=== PATIENT | male | born 1960 | race Caucasian/White ===

== ENCOUNTER → 2019-10-26 11:42 | Outpatient (CLI) | payer OTHER, SELFPAY ==
--- NOTE | 2019-10-26 | DI.MRI.S_ITS ---
PROCEDURE: MR LUMBAR SPINE WO CON INDICATIONS: Radiculopathy, lumbosacral region TECHNIQUE: Noncontrast sagittal T1 spin echo and T2 fast echo, sagittal STIR, axial T1 and T2 fast spin echo through the lumbar spine. In cases with scoliosis, additional coronal T2 fast spin echo may be performed. COMPARISON: [facility] Outside Film, MR, MR LUMBAR SPINE WITHOUT CONTRAST, 01/09/2012, 8:55. [facility] Outside Film, RG, SPINE LUMB 2 OR 3VW, 12/11/2013, 14:15. FINDINGS: Image quality: Excellent. Alignment and Curvature: 5 lumbar type vertebral bodies are present by plain film. There is mild, grade 1 retrolisthesis of L1 on L2, L2 on L3, L3 on L4, L4-L5, and L5 on S1. Bone Marrow: Marrow is of normal overall signal. No acute vertebral body compression fractures. There is mild reactive signal within the endplates adjacent to the 102, L2-L3, L3-L4, L4-L5, and L5-S1 intervertebral discs. Spinal Cord: Conus medullaris terminates at the L1-L2 disc space level. Visualized cord demonstrates normal signal and size. Paraspinous Soft Tissues: No paravertebral masses. L1-L2: Mild disc height loss and desiccation. Mild diffuse disc bulge. Mild facet and ligamentum flavum hypertrophy. Mild canal stenosis. No foraminal stenosis. No change. L2-L3: Moderate disc height loss and desiccation. Mild diffuse disc bulge. Mild facet and ligamentum flavum hypertrophy. Mild canal stenosis. Mild bilateral foraminal stenosis. No change. L3-L4: Moderate disc height loss and desiccation. Mild diffuse disc bulge. Mild facet and ligament flavum hypertrophy. Mild epidural lipomatosis. Moderate canal stenosis. Mild bilateral foraminal stenosis. No change. L4-L5: Moderate disc height loss and desiccation. Moderate diffuse disc bulge. Mild facet and ligamentum hypertrophy. Mild epidural lipomatosis. Mild canal stenosis. Moderate right and mild left foraminal stenosis. No change. L5-S1: Moderate disc height loss and desiccation with superimposed broad-based left posterolateral protrusion. Mild diffuse disc bulge. Mild facet and ligamentum hypertrophy. Mild canal stenosis. Moderate bilateral foraminal stenosis. There is disc abutment of the left S1 nerve root within the lateral recess without evidence of neural compression or deviation. No change. IMPRESSION: 1. Multilevel degenerative disc and facet disease, as well as ligamentum flavum hypertrophy and epidural lipomatosis. 2. Multilevel canal stenoses, worst at L3-L4 where there is moderate canal stenosis. 3. Multilevel foraminal stenoses, worst at L4-L5 on the right, and L5-S1 bilaterally where there are moderate foraminal stenoses. 4. Disc abutment of the left S1 nerve root within the lateral recess at the L5-S1 disc space level. Recommend correlation with clinical symptoms to ascertain relevance of this finding. Dictated by: Slim Dinh M.D. on 10/26/2019 at 13:45 Approved by: Slim Dinh M.D. on 10/26/2019 at 13:50
== END ==
PROVIDERS: Referring Provider Physical Medicine & Rehabilitation Pain Medicine; Visit Provider Physical Medicine & Rehabilitation Pain Medicine
DX: M51.17 Intervertebral disc disorders with radiculopathy, lumbosacral region (principal); M51.16 Intervertebral disc disorders with radiculopathy, lumbar region; M47.27 Other spondylosis with radiculopathy, lumbosacral region; M47.26 Other spondylosis with radiculopathy, lumbar region; M48.07 Spinal stenosis, lumbosacral region; M48.061 Spinal stenosis, lumbar region without neurogenic claudication; E88.2 Lipomatosis, not elsewhere classified
CPT/HCPCS: 72148

== ENCOUNTER 2019-12-02 19:10 | Emergency (ER) | payer OTHER, SELFPAY ==
[2019-12-02] VITALS (13 sets, daily range): BP systolic 131–172; BP diastolic 70–105; PULSE 85–105; RESP 13–26; TEMP 37.3; O2SAT 92–96; BMI 37.9
--- NOTE | 2019-12-02 19:27 | ED_ITS ---
HPI - General Adult <PAM Sandoval - Last Filed: 12/02/19 21:19> General Chief complaint: Hypertension Stated complaint: High BP For 3 Days 218/116 Time Seen by Provider: 12/02/19 19:18 Source: patient Mode of arrival: Ambulatory History of Present Illness HPI narrative: 59yo male with a history of hypertension, ?borderline diabetes ?, and back surgery, presents emergency department for elevated blood pressure and chest pain. Patient states he was recently switched off of lisinopril which she had been taking for blood pressure approximately week ago. He reports he was switched to a medication started with a ?a ?. Patient is throughout the week that his blood pressure has been slowly increasing. He states it is normally been in the 130s over 80s previous to the medications which. However, each day he noticed the numbers have been increasing. Patient reported he was originally switched from his medication as he had a chronic cough that would not resolve. He does report his cough is ?so much better ?. Patient noticed yesterday he developed a slight dull aching left sided chest pain that was intermittent. He states the pain was better when he sat in his chair to rest and worse when he was walking up the stairs. Reports 2/10 chest pain at time. He did have some shortness of breath upon walking up the stairs which has happened in the past. Patient states the shortness of breath is not new but is often related to his chronic back pain. However, he does not usually chest pain with exertion. Patient states today he felt flushed continued to have chest pain, he took his blood pressure and noticed that it was in the 200s and decided to come in for new evaluation. He did try to contact his doctor early in the week to notify them of his increasing blood pressure. Patient [place]. Patient denies any other symptoms such as fevers, chills, shortness of breath at this time, worsening cough, abdominal pain, nausea, vomiting, diarrhea, or any other concerns. Patient denies any previous MIs, congestive heart failure, or blood clots. Patient does not take any blood thinners or a daily aspirin. Denies taking anything today for pain. Patient states he smokes marijuana for pain control. Upon further evaluation, patient states his was tested for COVID-19 a month ago due to cough and illness. He was not tested but was given a Z-Claudio and an albuterol inhaler which improved his cough. He has ran out of his albuterol inhaler at this time. Related Data Allergies Allergy/AdvReac Type Severity Reaction Status Date / Time No Known Drug Allergies Allergy Verified 12/02/19 19:21 Review of Systems <BRETT SandovalP - Last Filed: 12/02/19 21:19> Review of Systems Narrative: REVIEW OF SYSTEMS: GENERAL: Denies fever or chills. HENT: No head trauma. CARDIOVASCULAR: Complains of chest pain, see HPI. Reports high blood pressure. RESPIRATORY: Reports exertional shortness of breath and resolving cough, see HPI. GASTROINTESTINAL: No nausea, vomiting, diarrhea, or constipation. MUSCULOSKELETAL: No pain, weakness, or deformities. INTEGUMENTARY: No rash, lesions, or pruritus. NEURO: No numbness or tingling. PSYCH: No behavior or mood changes. Patient History <Lisha Simon BOX SEALING MACHINE OPERATOR - Last Filed: 12/02/19 21:19> Medical History HTN (hypertension) (Acute) alcohol intake frequency: 0-2 drinks per day Substance Use Type: marijuana Exam <BRETT SandovalP - Last Filed: 12/02/19 21:19> Initial Vital Signs Initial Vital Signs: Vital Signs Temperature 99.1 F 12/02/19 19:19 Pulse Rate 105 H 12/02/19 19:19 Respiratory Rate 18 12/02/19 19:19 Blood Pressure 172/105 H 12/02/19 19:19 Pulse Oximetry 96 12/02/19 19:19 PHYSICAL EXAMINATION: GENERAL: Well groomed, alert, and cooperative. Obese appearing. Answers questions promptly and appropriately. Vital signs noted. HENT: Normocephalic, atraumatic. Ear canals patent. Oral mucosa is pink and moist. Facial color appears slightly flushed. EYES: Conjunctiva pink, sclera white, no periorbital swelling. CHEST: Normal to inspection and without deformities. CARDIOVASCULAR: S1 and S2 sounds normal. Slight tachycardia and regular rhythm, no murmurs, clicks, or bruits. No pedal edema. RESPIRATORY: Normal respiratory rate, trachea midline, airway patent. No stridor, nasal flaring or accessory muscle use. Lungs are clear in all murcia without wheeze, rhonchi, or crackles. GASTROINTESTINAL: Bowel sounds normoactive. Abdomen is soft and non-tender. No organomegaly. MUSCULOSKELETAL: Normal gait and coordination. Equal tone and mass bilaterally. EXTREMITIES: CMS intact. Moves all extremities. SKIN: Warm, dry, soft, appropriate color for ethnicity. No lesions, rashes, or wounds. NEURO: Alert and Oriented X 3. Good coordination. No ataxia, or sensory deficits, or cognitive issues. PSYCH: Appropriate affect and mood. <Gloria Ordaz MD - Last Filed: 12/02/19 23:07> Initial Vital Signs Initial Vital Signs: Vital Signs Temperature 99.1 F 12/02/19 19:19 Pulse Rate 105 H 12/02/19 19:19 Respiratory Rate 18 12/02/19 19:19 Blood Pressure 172/105 H 12/02/19 19:19 Pulse Oximetry 96 12/02/19 19:19 Scores <PAM Sandoval - Last Filed: 12/02/19 21:19> HEART Score Heart Score history: Slightly Suspicious Heart Score EKG: Normal Heart Score Age: 45-64 years old Heart Score risk factors: 1-2 risk factors Heart Score troponin: < or = to normal limit Heart Score Total: 2 Course <PAM Sandoval - Last Filed: 12/02/19 21:19> Course Course Narrative: 1929: After initial evaluation, patient reported chest pain has increased to a 5/10. Aspirin, nitro, and metoprolol were ordered at this time. 1947: RN reported patient's oxygen saturation dropped to 86% while patient was sitting and talking to his . Patient reports slight relief after 3 nitro but pain is starting to come back. He does report a headache, Tylenol was ordered. 2030: Patient updated on plan of care. 2109: Patient reports feeling better after administrations of steroids and albuterol, reports feeling less short of breath. 2114: Patient signed out to Dr. Ordaz for further evaluation and care Orders Ordered: ED Orders 12/02/19 19:17 EKG-12 Lead Routine 12/02/19 19:20 Complete Blood Count AUTO DIFF Stat Comprehensive Metabolic Panel Stat D Dimer Stat Lipase Stat NT-proBNP (BNP-Adult 18+) Stat Troponin & CK Cardiac Panel Stat 12/02/19 19:26 XR chest 1V Stat 12/02/19 20:16 CT chest w con Stat 12/02/19 21:13 EKG-12 Lead Stat 12/02/19 21:16 Troponin I Stat Nitroglycerin (Nitrostat) 0.4 mg SL [id number] PRN PRN Reason: Chest Pain Last Admin: 12/02/19 19:45 Dose: 0.4 mg Documented by: Admin: 12/02/19 19:37 Dose: 0.4 mg Documented by: SEN Discontinued Medications Acetaminophen (Tylenol) 650 mg PO NOW ONE Stop: 12/02/19 20:10 Last Admin: 12/02/19 20:16 Dose: 650 mg Documented by: SMITHA Albuterol (Ventolin Hfa) 2 puff INH NOW ONE Stop: 12/02/19 20:17 Last Admin: 12/02/19 20:34 Dose: 2 puff Documented by: JATIN Aspirin (Aspirin Chew) 324 mg PO NOW ONE Stop: 12/02/19 19:26 Last Admin: 12/02/19 19:37 Dose: 324 mg Documented by: SEN Ketorolac Tromethamine (Toradol) 15 mg IV NOW ONE Stop: 12/02/19 22:10 Last Admin: 12/02/19 22:17 Dose: 15 mg Documented by: SEN Methylprednisolone (Solu-Medrol 125 Mg Vial) 125 mg IV NOW ONE Stop: 12/02/19 20:19 Last Admin: 12/02/19 20:58 Dose: 125 mg Documented by: SEN Metoprolol Tartrate (Lopressor) 5 mg IV NOW ONE Stop: 12/02/19 19:26 Last Admin: 12/02/19 19:37 Dose: 5 mg Documented by: SEN Consultations Consultation #1: Patient staffed with Dr. Ordaz, discussed symptoms, tests, and test results. Vital Signs Vital signs: Vital Signs - 8 hr 12/02/19 19:19 12/02/19 19:37 12/02/19 19:45 Temperature 99.1 F Pulse Rate 105 H 95 H Respiratory Rate 18 Blood Pressure 172/105 H 169/97 H 136/77 Blood Pressure [Left Arm] Pulse Oximetry 96 12/02/19 20:00 12/02/19 20:30 12/02/19 20:38 Temperature Pulse Rate 96 H 93 H 93 H Respiratory Rate 25 H 26 H 18 Blood Pressure Blood Pressure [Left Arm] 131/79 133/84 Pulse Oximetry 93 94 93 12/02/19 20:55 12/02/19 21:25 12/02/19 22:00 Temperature Pulse Rate 88 92 H 87 Respiratory Rate 20 19 17 Blood Pressure Blood Pressure [Left Arm] 153/84 H 156/87 H 134/70 Pulse Oximetry 94 93 92 12/02/19 22:15 12/02/19 22:30 12/02/19 22:43 Temperature Pulse Rate 89 90 98 H Respiratory Rate 13 22 22 Blood Pressure Blood Pressure [Left Arm] 135/80 133/81 Pulse Oximetry 92 93 94 <Gloria Ordaz MD - Last Filed: 12/02/19 23:07> Orders Ordered: ED Orders 12/02/19 19:17 EKG-12 Lead Routine 12/02/19 19:20 Complete Blood Count AUTO DIFF Stat Comprehensive Metabolic Panel Stat D Dimer Stat Lipase Stat NT-proBNP (BNP-Adult 18+) Stat Troponin & CK Cardiac Panel Stat 12/02/19 19:26 XR chest 1V Stat 12/02/19 20:16 CT chest w con Stat 12/02/19 21:13 EKG-12 Lead Stat 12/02/19 21:16 Troponin I Stat Nitroglycerin (Nitrostat) 0.4 mg SL [id number] PRN PRN Reason: Chest Pain Last Admin: 12/02/19 19:45 Dose: 0.4 mg Documented by: Admin: 12/02/19 19:37 Dose: 0.4 mg Documented by: SEN Discontinued Medications Acetaminophen (Tylenol) 650 mg PO NOW ONE Stop: 12/02/19 20:10 Last Admin: 12/02/19 20:16 Dose: 650 mg Documented by: SMITHA Albuterol (Ventolin Hfa) 2 puff INH NOW ONE Stop: 12/02/19 20:17 Last Admin: 12/02/19 20:34 Dose: 2 puff Documented by: JATIN Aspirin (Aspirin Chew) 324 mg PO NOW ONE Stop: 12/02/19 19:26 Last Admin: 12/02/19 19:37 Dose: 324 mg Documented by: SEN Ketorolac Tromethamine (Toradol) 15 mg IV NOW ONE Stop: 12/02/19 22:10 Last Admin: 12/02/19 22:17 Dose: 15 mg Documented by: SEN Methylprednisolone (Solu-Medrol 125 Mg Vial) 125 mg IV NOW ONE Stop: 12/02/19 20:19 Last Admin: 12/02/19 20:58 Dose: 125 mg Documented by: SEN Metoprolol Tartrate (Lopressor) 5 mg IV NOW ONE Stop: 12/02/19 19:26 Last Admin: 12/02/19 19:37 Dose: 5 mg Documented by: SEN Vital Signs Vital signs: Vital Signs - 8 hr 12/02/19 19:19 12/02/19 19:37 12/02/19 19:45 Temperature 99.1 F Pulse Rate 105 H 95 H Respiratory Rate 18 Blood Pressure 172/105 H 169/97 H 136/77 Blood Pressure [Left Arm] Pulse Oximetry 96 12/02/19 20:00 12/02/19 20:30 12/02/19 20:38 Temperature Pulse Rate 96 H 93 H 93 H Respiratory Rate 25 H 26 H 18 Blood Pressure Blood Pressure [Left Arm] 131/79 133/84 Pulse Oximetry 93 94 93 12/02/19 20:55 12/02/19 21:25 12/02/19 22:00 Temperature Pulse Rate 88 92 H 87 Respiratory Rate 20 19 17 Blood Pressure Blood Pressure [Left Arm] 153/84 H 156/87 H 134/70 Pulse Oximetry 94 93 92 12/02/19 22:15 12/02/19 22:30 12/02/19 22:43 Temperature Pulse Rate 89 90 98 H Respiratory Rate 13 22 22 Blood Pressure Blood Pressure [Left Arm] 135/80 133/81 Pulse Oximetry 92 93 94 Medical Decision Making <PAM Sandoval - Last Filed: 12/02/19 21:19> Medical Records Medical records reviewed: Yes I reviewed the patient's medical records. Lab Data Lab results reviewed: Yes I reviewed the patient's lab results. Result diagrams: 12/02/19 19:20 12/02/19 19:20 Labs: Lab Results 12/02/19 12/02/19 12/02/19 Range/Units 19:20 19:20 19:20 WBC 9.3 (4.5-11.0) X10^3/uL RBC 5.04 (4.5-5.9) X10^6/uL Hgb 16.9 (13.5-17.5) g/dL Hct 47.4 (41-53) % MCV 94.1 (80-100) fL MCH 33.6 (26-34) PG MCHC 35.7 (30-36) % RDW 13.6 (11.6-14.8) % Plt Count 185 (150-400) X10^3/uL Neut % (Auto) 76.2 H (50-75) % Lymph % (Auto) 15.2 L (25-40) % [place] % (Auto) 7.8 (3-14) % Eos % (Auto) 0.5 L (2-4) % Baso % (Auto) 0.3 (0-2) % Neut # (Auto) 7100 H (1300-8430) /uL Lymph # (Auto) 1400 (6335-8757) /uL [place] # (Auto) 700 (0-900) /uL Eos # (Auto) 0 (0-450) /uL Baso # (Auto) 0 (0-100) /uL D-Dimer < 200 (<230) ng/mL Sodium 137 (137-145) mmol/L Potassium 3.9 (3.4-5.1) mmol/L Chloride 100 (98-107) mmol/L Carbon Dioxide 24 (22-32) mmol/L BUN 16 (9-20) mg/dL Creatinine 1.00 (0.66-1.25) mg/dL Estimated GFR > 60.0 (>60) mL/min BUN/Creatinine Ratio 16.0 (6-22) Glucose 162 H (70-100) mg/dL Calcium 9.7 (8.4-10.2) mg/dL Total Bilirubin 0.7 (0.2-1.3) mg/dL AST 67 H (17-59) IU/L ALT 84 H (<50) IU/L Alkaline Phosphatase 58 (38-126) U/L Total Creatine Kinase 334 H (55-170) U/L CK-MB (CK-2) 3.91 H (<2.37) ng/mL CK-MB (CK-2) Rel Index 1.2 L (1.5-5.0) % Troponin I < 0.012 (0.01-0.034) ng/mL NT-Pro-B Natriuret Pep (<125) pg/mL Total Protein 7.6 (6.3-8.2) g/dL Albumin 4.7 (3.5-5.0) g/dL Globulin 2.9 (1.7-4.1) g/dL Albumin/Globulin Ratio 1.6 (1.0-2.8) Lipase 52 (23-300) U/L 12/02/19 12/02/19 Range/Units 19:20 21:16 WBC (4.5-11.0) X10^3/uL RBC (4.5-5.9) X10^6/uL Hgb (13.5-17.5) g/dL Hct (41-53) % MCV (80-100) fL MCH (26-34) PG MCHC (30-36) % RDW (11.6-14.8) % Plt Count (150-400) X10^3/uL Neut % (Auto) (50-75) % Lymph % (Auto) (25-40) % [place] % (Auto) (3-14) % Eos % (Auto) (2-4) % Baso % (Auto) (0-2) % Neut # (Auto) (6193-0002) /uL Lymph # (Auto) (4215-1144) /uL [place] # (Auto) (0-900) /uL Eos # (Auto) (0-450) /uL Baso # (Auto) (0-100) /uL D-Dimer (<230) ng/mL Sodium (137-145) mmol/L Potassium (3.4-5.1) mmol/L Chloride (98-107) mmol/L Carbon Dioxide (22-32) mmol/L BUN (9-20) mg/dL Creatinine (0.66-1.25) mg/dL Estimated GFR (>60) mL/min BUN/Creatinine Ratio (6-22) Glucose (70-100) mg/dL Calcium (8.4-10.2) mg/dL Total Bilirubin (0.2-1.3) mg/dL AST (17-59) IU/L ALT (<50) IU/L Alkaline Phosphatase (38-126) U/L Total Creatine Kinase (55-170) U/L CK-MB (CK-2) (<2.37) ng/mL CK-MB (CK-2) Rel Index (1.5-5.0) % Troponin I < 0.012 (0.01-0.034) ng/mL NT-Pro-B Natriuret Pep 19 (<125) pg/mL Total Protein (6.3-8.2) g/dL Albumin (3.5-5.0) g/dL Globulin (1.7-4.1) g/dL Albumin/Globulin Ratio (1.0-2.8) Lipase (23-300) U/L Imaging Data Chest x-ray: Radiologist's Impression: [address] [address] XRay Report Signed Patient: EJ CLARK JMR#: [id number] : 1Acct:[id number] Age/Sex: 59 / MDate of Service: 12/02/19 Loc: ED Accession Number: [id number] Procedure: XR chest 1V Ordering Provider: Lisha Simon PROCEDURE: XR CHEST 1V INDICATIONS: chest Pain TECHNIQUE: One view of the chest was acquired. COMPARISON: None. FINDINGS: Surgical changes and devices: None. Lungs and pleura: Lungs are clear. No pleural effusions or pneumothorax. Mediastinum: Mediastinal contours appear normal. Heart size is normal. Bones and chest wall: No suspicious bony lesions. Overlying soft tissues appear unremarkable. IMPRESSION: 1. No acute cardiopulmonary disease. Dictated by: Foster Viera M.D. on 12/02/2019 at 20:28 Approved by: Foster Viera M.D. on 12/02/2019 at 20:28 ECG Data Interpretation: 191: Sinus tachycardia, rate 102, NM interval 166, QTC 373. No ST elevation or ST depression. No T-wave inversion. No ectopy. EKG viewed by Dr. Ordaz per protocol. No prior EKGs for comparison. MDM Narrative Medical decision making narrative: 59-year-old male with history of hypertension and obesity, presents to the emergency department with chest pain and hypertension. Differential includes PE versus ACS versus reactive airway disease versus viral etiology such as COVID-19. There may be a possible reactive airway disease component as patient states he feels better after inhaler administration, however, no wheezes were heard on examination prior and after administration of albuterol. Less likely congestive heart failure due to lack of crackles in the lower leg edema. No history of CHF, BNP within normal limits. Less likely PE due to negative D-dimer. CT was ordered and progress for further evaluation upon sign out. Patient was swabbed for CVOID-19 given respiratory symptoms and prolonged cough as well as hypoxia. Less likely ACS due to non remarkable EKG and negative troponin. However EKG and troponin or repeated within 2 hours for further evaluation due to worsening chest pain in the emergency department. HEART score of 2. Less likely sepsis or pneumonia due to lack the a chest x-ray, no systemic symptoms of infection such as fever or sustained tachycardia. Care was signed out to Dr. Ordaz for further evaluation and work up. <Gloria Ordaz MD - Last Filed: 12/02/19 23:07> Medical Records Medical records reviewed: Yes I reviewed the patient's medical records. Lab Data Lab results reviewed: Yes I reviewed the patient's lab results. Labs: Lab Results 12/02/19 12/02/19 12/02/19 Range/Units 19:20 19:20 19:20 WBC 9.3 (4.5-11.0) X10^3/uL RBC 5.04 (4.5-5.9) X10^6/uL Hgb 16.9 (13.5-17.5) g/dL Hct 47.4 (41-53) % MCV 94.1 (80-100) fL MCH 33.6 (26-34) PG MCHC 35.7 (30-36) % RDW 13.6 (11.6-14.8) % Plt Count 185 (150-400) X10^3/uL Neut % (Auto) 76.2 H (50-75) % Lymph % (Auto) 15.2 L (25-40) % [place] % (Auto) 7.8 (3-14) % Eos % (Auto) 0.5 L (2-4) % Baso % (Auto) 0.3 (0-2) % Neut # (Auto) 7100 H (3619-3527) /uL Lymph # (Auto) 1400 (3140-5867) /uL [place] # (Auto) 700 (0-900) /uL Eos # (Auto) 0 (0-450) /uL Baso # (Auto) 0 (0-100) /uL D-Dimer < 200 (<230) ng/mL Sodium 137 (137-145) mmol/L Potassium 3.9 (3.4-5.1) mmol/L Chloride 100 (98-107) mmol/L Carbon Dioxide 24 (22-32) mmol/L BUN 16 (9-20) mg/dL Creatinine 1.00 (0.66-1.25) mg/dL Estimated GFR > 60.0 (>60) mL/min BUN/Creatinine Ratio 16.0 (6-22) Glucose 162 H (70-100) mg/dL Calcium 9.7 (8.4-10.2) mg/dL Total Bilirubin 0.7 (0.2-1.3) mg/dL AST 67 H (17-59) IU/L ALT 84 H (<50) IU/L Alkaline Phosphatase 58 (38-126) U/L Total Creatine Kinase 334 H (55-170) U/L CK-MB (CK-2) 3.91 H (<2.37) ng/mL CK-MB (CK-2) Rel Index 1.2 L (1.5-5.0) % Troponin I < 0.012 (0.01-0.034) ng/mL NT-Pro-B Natriuret Pep (<125) pg/mL Total Protein 7.6 (6.3-8.2) g/dL Albumin 4.7 (3.5-5.0) g/dL Globulin 2.9 (1.7-4.1) g/dL Albumin/Globulin Ratio 1.6 (1.0-2.8) Lipase 52 (23-300) U/L 12/02/19 12/02/19 Range/Units 19:20 21:16 WBC (4.5-11.0) X10^3/uL RBC (4.5-5.9) X10^6/uL Hgb (13.5-17.5) g/dL Hct (41-53) % MCV (80-100) fL MCH (26-34) PG MCHC (30-36) % RDW (11.6-14.8) % Plt Count (150-400) X10^3/uL Neut % (Auto) (50-75) % Lymph % (Auto) (25-40) % [place] % (Auto) (3-14) % Eos % (Auto) (2-4) % Baso % (Auto) (0-2) % Neut # (Auto) (6735-4800) /uL Lymph # (Auto) (9000-0189) /uL [place] # (Auto) (0-900) /uL Eos # (Auto) (0-450) /uL Baso # (Auto) (0-100) /uL D-Dimer (<230) ng/mL Sodium (137-145) mmol/L Potassium (3.4-5.1) mmol/L Chloride (98-107) mmol/L Carbon Dioxide (22-32) mmol/L BUN (9-20) mg/dL Creatinine (0.66-1.25) mg/dL Estimated GFR (>60) mL/min BUN/Creatinine Ratio (6-22) Glucose (70-100) mg/dL Calcium (8.4-10.2) mg/dL Total Bilirubin (0.2-1.3) mg/dL AST (17-59) IU/L ALT (<50) IU/L Alkaline Phosphatase (38-126) U/L Total Creatine Kinase (55-170) U/L CK-MB (CK-2) (<2.37) ng/mL CK-MB (CK-2) Rel Index (1.5-5.0) % Troponin I < 0.012 (0.01-0.034) ng/mL NT-Pro-B Natriuret Pep 19 (<125) pg/mL Total Protein (6.3-8.2) g/dL Albumin (3.5-5.0) g/dL Globulin (1.7-4.1) g/dL Albumin/Globulin Ratio (1.0-2.8) Lipase (23-300) U/L Imaging Data Chest x-ray: Radiologist's Impression: IMPRESSION: 1. No acute cardiopulmonary disease. Dictated by: Foster Viera M.D. on 12/02/2019 at 20:28 CT scan - chest: Radiologist's Impression: IMPRESSION: 1. No acute consolidation, pleural effusions, or definite CT evidence of pulmonary edema. 2. 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 Dictated by: Foster Viera M.D. on 12/02/2019 at 21:16 ECG Data Attestation: I personally reviewed and interpreted this ECG as follows: Interpretation: #1 19:17 Sinus rhythm at a rate of 102 Normal axis, normal intervals No acute STT wave changes #2 21:13 Sinus rhythm at a rate of 89 Normal axis, normal intervals No acute ST T wave changes MDM Narrative Medical decision making narrative: Care is assumed from Lisha OROZCO. 59-year-old gentleman without significant coronary artery today disease history presents with chest pain change from lisinopril to presumably atenolol. He notes that his cough is significantly better after discontinuing lisinopril. Blood pressure has not been quite as well controlled. He is experiencing mild exertional dyspnea and while in the emergency department saturations were appr opriate while ambulating however dropped while at rest. Initial workup does not suggest acute coronary syndrome, pneumonia, pulmonary embolism or other acute issues. Covid19 test is pending. Repeat troponin and EKG at 2:00 a.m. are equally reassuring. Will maximize blood pressure control with metoprolol for his antianginal effects and asked that he return to his primary care physician to consider cardiac stress testing as well as sleep apnea testing. He is safe for home discharge currently. Questions were answered and findings were reviewed in detail Discharge Plan Departure Patient Disposition: Home Clinical Impression: SAUNDERS (dyspnea on exertion) Hypertension Qualifiers: Hypertension type: essential hypertension Qualified Code(s): I10 - Essential (primary) hypertension Instructions: DI for Shortness of Breath Activity Restrictions/Additional Instructions: Thank you for coming in tonight We discussed a number of issues primary 1 being I am finding no evidence of acute life-threatening diagnoses this evening. Specifically, there is no acute heart attack, pulmonary infection, other pulmonary abnormality, blood clot in your lung, no evidence of asthma or COPD, severe anemia or other lab ab normalities Things that you need to discuss with your primary care physician and recommendations on discharge: 1. High blood pressure: please increased her metoprolol from 12.5 mg to 25 mg morning and night. This can help with controlling heart rate, blood pressure and can also help in alleviating heart related chest pain 2. Continue the 5 mg of amlodipine 3. Please discuss the possibility of sleep apnea with your doctor and see if she thinks the sleep study might be appropriate. If you do have significant sleep apnea, treating this effectively can help you feel more energetic, reduce need for blood pressure medications and diabetic medications, help you think more clearly, and help with weight loss 4. Regarding the exertional dyspnea: You have described some recent weight gain and that may be contributing. We did not find evidence of an immediately impending heart attack however you may still need further testing to make sure that you are not developing coronary artery disease as reason to explain your shortness of breath. This may be in the form of a nuclear medicine stress test and your primary care physician may refer you to a universal grinder operator 5. We did do a Covid19 test today. You will be contacted with results which should be available by tomorrow. My suspicion for active Covid19 disease is very low based on your essentially normal CT scan of your chest. If you develop new or worsening symptoms, worsening chest pain dyspnea at rest, fevers or chills please return to the emergency department and I am happy to re- evaluate I have given you copies of the blood tests and imaging studies from her emergency room visit today so that you may share this with your [facility] providers.
[2019-12-02 19:34] LABS: Add Manual Diff / Slide Review NO; Basophils Absolute Auto 0 /uL (0-100); Basophils Percent Auto 0.3 % (0-2); Eosinophils Absolute Auto 0 /uL (0-450); Eosinophils Percent Auto 0.5 % (2-4); Hematocrit 47.4 % (41-53); Hemoglobin 16.9 g/dL (13.5-17.5); Lymphocytes Absolute Auto 1400 /uL (1100-4500); Lymphocytes Percent Auto 15.2 % (25-40); Mean Corpuscular HGB Conc 35.7 % (30-36); Mean Corpuscular Hemoglobin 33.6 PG (26-34); Mean Corpuscular Volume 94.1 fL (80-100); Monocytes Absolute Auto 700 /uL (0-900); Monocytes Percent Auto 7.8 % (3-14); Neutrophils Absolute Auto 7100 /uL (1500-7000); Neutrophils Percent Auto 76.2 % (50-75); Platelet Count 185 X10^3/uL (150-400); Red Blood Cell Count 5.04 X10^6/uL (4.5-5.9); Red Cell Distribution Width 13.6 % (11.6-14.8); White Blood Cell Count 9.3 X10^3/uL (4.5-11.0)
[2019-12-02] MEDS: ASPIRIN 81 MG CHEW TAB 324 MG PO (19:37)
[2019-12-02] MEDS: NITROGLYCERIN 0.4 MG SL TAB SL ×2 (19:37→19:45)
[2019-12-02] MEDS: METOPROLOL TARTRATE 5 MG/5 ML INJ IV (19:37)
[2019-12-02 19:46] LABS: Alanine Aminotransferase 84 IU/L (<50); Albumin 4.7 g/dL (3.5-5.0); Albumin Globulin Ratio 1.6 (1.0-2.8); Alkaline Phosphatase 58 U/L (38-126); Aspartate Aminotransferase 67 IU/L (17-59); Bilirubin Total 0.7 mg/dL (0.2-1.3); Blood Urea Nitrogen 16 mg/dL (9-20); Calcium 9.7 mg/dL (8.4-10.2); Carbon Dioxide 24 mmol/L (22-32); Chloride 100 mmol/L (98-107); Creatine Kinase 334 U/L (55-170); Estimated Glomerular Filt Rate > 60.0 mL/min (>60); Globulin 2.9 g/dL (1.7-4.1); Glucose 162 mg/dL (70-100); HEMOLYSIS 32 (0-50); Lipase 52 U/L (23-300); Potassium 3.9 mmol/L (3.4-5.1); Sodium 137 mmol/L (137-145); Total Protein 7.6 g/dL (6.3-8.2)
[2019-12-02 19:57] LABS: Troponin I < 0.012 ng/mL (0.01-0.034)
[2019-12-02 20:00] LABS: D Dimer < 200 ng/mL (<230)
[2019-12-02 20:01] LABS: CKMB % Relative Index 1.2 % (1.5-5.0); Creatine Kinase MB 3.91 ng/mL (<2.37)
--- NOTE | 2019-12-02 20:10 | PC.NURSE ---
Pt's oxygen dropping to 85% on Room air. Encouraged pt to deep breath and o2 would increase up to 92% then drop again after he stops deep breathing. Placed him on 2L of O2 via n/c. Pt would continue to intermittent drop to 89% and turned his o2 to 3L. Provider aware.
[2019-12-02 20:13] LABS: NT-proBNP (BNP-Adult 18+) 19 pg/mL (<125)
[2019-12-02] MEDS: ACETAMINOPHEN 325 MG TABLET 650 MG PO (20:16)
--- NOTE | 2019-12-02 20:16 | DI.CT.S_ITS ---
PROCEDURE: CT CHEST W CON INDICATIONS: Unexplained dyspnea and hypoxia TECHNIQUE: After the administration of intravenous contrast, 5 mm thick sections acquired from the pulmonary apices to the posterior costophrenic angles. 1 mm axial lung, 5 mm thick coronal and sagittal reformats and 7 mm axial MIP were acquired. For radiation dose reduction, the following was used: automated exposure control, adjustment of mA and/or kV according to patient size. COMPARISON: [facility], CR, XR CHEST 1V, 12/02/2019, 19:29. FINDINGS: Image quality: There is mild motion artifact. Lungs and pleura: No acute consolidation. Mild atelectasis or scarring is demonstrated in the inferior left lingula. No pleural effusions or pneumothorax. Central and peripheral airways are patent and normal in caliber. Mediastinum: Heart size is normal. No pericardial effusion. No mediastinal or hilar adenopathy by size criteria. Thoracic aorta and central pulmonary arteries are normal in size. Esophagus is normal in caliber. No hiatal hernia. Bones and chest wall: No suspicious bony lesions. No vertebral body compression fractures. No axillary or supraclavicular adenopathy by size criteria. There is a fat density mass within the right pectoralis minor muscle most likely representing a lipoma. Abdomen: Visualized upper abdomen demonstrates diffuse hyperattenuation of the liver consistent with fatty infiltration. IMPRESSION: 1. No acute consolidation, pleural effusions, or definite CT evidence of pulmonary edema. 2. 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 Dictated by: Foster Viera M.D. on 12/02/2019 at 21:16 Approved by: Foster Viera M.D. on 12/02/2019 at 21:19
[2019-12-02] MEDS: ALBUTEROL HFA 60 PUFF/8 GM INH INH (20:34)
[2019-12-02] MEDS: methylPREDNISolone 125 MG/2 ML VIAL IV (20:58)
[2019-12-02 21:56] LABS: Troponin I < 0.012 ng/mL (0.01-0.034)
[2019-12-02] MEDS: KETOROLAC 60 MG/2 ML VIAL 15 MG IV (22:17)
--- NOTE | 2019-12-02 22:26 | PC.NURSE ---
turned off O2 at this time.
[2019-12-02] MEDS: METOPROLOL IR 25 MG TABLET PO (23:14)
[2019-12-04 10:11] LABS: COVID19 Sendout Not Detected (Not Detect)
== END 2019-12-02 23:48 | disposition home or self-care (01) ==
PROVIDERS: Emergency Provider Nurse Practitioner
DX: I10 Essential (primary) hypertension (principal); R06.09 Other forms of dyspnea; R07.9 Chest pain, unspecified; R00.0 Tachycardia, unspecified
CPT/HCPCS: 36415; 71045; 71260; 80053; 82550; 82553; 83690; 83880; 84484; 85025; 85379; 87635; 93005; 93010; 94640; 96374; 96375; 99284; 99285; J1885; J2930

== ENCOUNTER 2020-02-10 20:47 | Emergency (ER) | payer OTHER, SELFPAY ==
[2020-02-10] VITALS (7 sets, daily range): BP systolic 156–169; BP diastolic 84–97; PULSE 95–101; RESP 7–27; TEMP 37; O2SAT 91–93; BMI 37.9
--- NOTE | 2020-02-10 20:56 | ED.AMS ---
HPI - Altered Mental Status General Chief Complaint: Neuro Symptoms/Deficit Stated Complaint: high blood pressure, multiple issues Time Seen by Provider: 02/10/20 20:50 Source: patient and family Mode of arrival: Ambulatory Limitations: no limitations History of Present Illness HPI narrative: 59M non smoker with extensive alcohol history presents with his and a family friend with the chief complaint of a fall a few days ago with anterior abdominal pain and hematoma. When talking with family he may be a bit confused over the day but there is no focal neurologic finding such as numbness, weakness, or tingling. Over the weekend the patient was working on a deck with some heavy equipment and he tripped and fell and landed on his anterior abdomen. Since then he has had some pain along his right anterior ribs and developed a hematoma in his anterior abdomen. His family is concerned that his abdomen has become distended and bloated. He denies the use of any street drugs. He denies any dietary change. He does state that he drinks a significant amount of alcohol daily. Related Data Allergies Allergy/AdvReac Type Severity Reaction Status Date / Time No Known Drug Allergies Allergy Verified 12/02/19 19:21 Review of Systems Constitutional Constitutional: Denies chills, Reports fatigue, Denies fever(s), Denies frequent falls, Denies lethargy and Denies weakness Eyes Eyes: Denies change in vision, Denies eye discharge, Denies irritation and Denies loss of vision ENT Ears, Nose, Mouth, and Throat: Denies change in voice, Denies dizziness, Denies neck pain, Denies sore throat and Denies throat swelling Cardiovascular Cardiovascular: Denies chest pain, Denies irregular heart rhythm, Denies lightheadedness, Denies palpitations, Denies dyspnea, Denies dyspnea on exertion and Denies orthopnea Respiratory Respiratory: Denies cough, Denies dyspnea, Denies dyspnea on exertion and Denies wheezing Gastrointestinal Gastrointestinal: Denies abdominal pain, Denies change in bowel habits, Denies diarrhea, Denies nausea and Denies vomiting Musculoskeletal Musculoskeletal: Denies neck pain and Denies numbness Integumentary/Breasts Skin/Breast: Denies pruritus, Denies erythema, Denies rash and Denies wounds Neurologic Neurologic: Denies behavioral changes, Denies confusion, Denies dizziness, Denies frequent falls, Denies loss of vision, Denies numbness and Denies weakness Psychiatric Psychiatric: Denies anxiety, Denies behavioral changes, Denies confusion, Denies depression, Denies homicidal ideation and Denies suicidal ideation Endocrine Endocrine: Reports fatigue, Denies flushing and Denies palpitations Hematologic/Lymphatic Hematologic/Lymphatic: Denies easy bruising Allergic/Immunologic Allergic/Immunologic: Denies urticaria, Denies throat swelling and Denies wheezing Patient History Medical History (Updated 02/11/20 @ 01:07 by Gabriel Hawkins DO) HTN (hypertension) (Acute) alcohol intake frequency: 0-2 drinks per day Substance Use Type: marijuana Exam Initial Vital Signs Initial Vital Signs: Vital Signs Pulse Rate 101 H 02/10/20 20:56 Respiratory Rate 7 L 02/10/20 20:56 Pulse Oximetry 92 02/10/20 20:56 Course Orders Ordered: ED Orders 02/10/20 20:56 CT head/brain wo con Stat EKG-12 Lead Stat 02/10/20 21:11 Complete Blood Count AUTO DIFF Stat Comprehensive Metabolic Panel Stat D Dimer Stat Ethanol (ETOH) Stat Magnesium Stat NT-proBNP (BNP-Adult 18+) Stat Partial Thromboplastin Time Stat Prothrombin Time INR Stat Troponin & CK Cardiac Panel Stat 02/10/20 22:20 Ammonia (NH3) Stat 02/10/20 22:43 CT chest abd pel w con Stat 02/11/20 00:05 Urine Drug Screen, Rapid Stat Discontinued Medications Thiamine HCl 400 mg/ Sodium (Chloride) 54 mls @ 216 mls/hr IV NOW ONE Stop: 02/10/20 20:57 Last Infusion: 02/10/20 22:10 Dose: 0 mls/hr Documented by: Admin: 02/10/20 21:12 Dose: 216 mls/hr Documented by: SEN Vital Signs Vital signs: Vital Signs - 8 hr 02/10/20 20:56 02/10/20 21:00 02/10/20 21:30 Temperature 98.6 F Pulse Rate 101 H 100 H 99 H Respiratory Rate 7 L 27 H 21 Blood Pressure 163/97 H 156/84 H Pulse Oximetry 92 92 91 02/10/20 22:00 02/10/20 22:30 02/10/20 23:05 Temperature Pulse Rate 100 H 95 H 99 H Respiratory Rate 24 23 Blood Pressure 169/90 H 156/87 H Pulse Oximetry 92 93 93 02/10/20 23:30 Temperature Pulse Rate 97 H Respiratory Rate Blood Pressure Pulse Oximetry 91 MDM - Altered Mental Status Lab Data Result diagrams: 02/10/20 21:11 02/10/20 21:11 Labs: Lab Results 02/10/20 02/10/20 02/10/20 Range/Units 21:11 21:11 21:11 WBC 8.1 (4.5-11.0) X10^3/uL RBC 5.08 (4.5-5.9) X10^6/uL Hgb 16.9 (13.5-17.5) g/dL Hct 48.5 (41-53) % MCV 95.5 (80-100) fL MCH 33.2 (26-34) PG MCHC 34.8 (30-36) % RDW 13.7 (11.6-14.8) % Plt Count 154 (150-400) X10^3/uL Neut % (Auto) 72.1 (50-75) % Lymph % (Auto) 17.6 L (25-40) % [place] % (Auto) 7.7 (3-14) % Eos % (Auto) 2.1 (2-4) % Baso % (Auto) 0.5 (0-2) % Neut # (Auto) 5800 (8746-0068) /uL Lymph # (Auto) 1400 (4915-8831) /uL [place] # (Auto) 600 (0-900) /uL Eos # (Auto) 200 (0-450) /uL Baso # (Auto) 0 (0-100) /uL PT 11.4 (10.1-12.7) SECONDS INR 1.0 (0.9-1.3) APTT 30 (26.4-36.2) SECONDS D-Dimer (<230) ng/mL Sodium 138 (137-145) mmol/L Potassium 4.1 (3.4-5.1) mmol/L Chloride 102 (98-107) mmol/L Carbon Dioxide 25 (22-32) mmol/L BUN 17 (9-20) mg/dL Creatinine 1.01 (0.66-1.25) mg/dL Estimated GFR > 60.0 (>60) mL/min BUN/Creatinine Ratio 16.8 (6-22) Glucose 210 H (70-100) mg/dL Calcium 9.0 (8.4-10.2) mg/dL Magnesium 1.8 (1.6-2.3) mg/dL Total Bilirubin 0.5 (0.2-1.3) mg/dL AST 77 H (17-59) IU/L ALT 106 H (<50) IU/L Alkaline Phosphatase 55 (38-126) U/L Ammonia (9-30) umol/L Total Creatine Kinase 433 H (55-170) U/L CK-MB (CK-2) 3.77 H (<2.37) ng/mL CK-MB (CK-2) Rel Index 0.9 L (1.5-5.0) % Troponin I < 0.012 (0.01-0.034) ng/mL NT-Pro-B Natriuret Pep 37 (<125) pg/mL Total Protein 7.1 (6.3-8.2) g/dL Albumin 4.4 (3.5-5.0) g/dL Globulin 2.7 (1.7-4.1) g/dL Albumin/Globulin Ratio 1.6 (1.0-2.8) U Opiates 300ng/mL cut (Negative) Ur Oxycodone Screen (Negative) Urine Methadone Screen (Negative) Ur Barbiturates Screen (Negative) U Tricyclic Antidepress (Negative) Ur Phencyclidine Scrn (Negative) Ur Amphetamines Screen (Negative) U Methamphetamines Scrn (Negative) Ur MDMA Scrn (Ecstasy) (Negative) U Benzodiazepines Scrn (Negative) Urine Cocaine Screen (Negative) U Marijuana (THC) Screen (Negative) Ethyl Alcohol ( - 10) mg/dL 02/10/20 02/10/20 02/10/20 Range/Units 21:11 21:11 22:20 WBC (4.5-11.0) X10^3/uL RBC (4.5-5.9) X10^6/uL Hgb (13.5-17.5) g/dL Hct (41-53) % MCV (80-100) fL MCH (26-34) PG MCHC (30-36) % RDW (11.6-14.8) % Plt Count (150-400) X10^3/uL Neut % (Auto) (50-75) % Lymph % (Auto) (25-40) % [place] % (Auto) (3-14) % Eos % (Auto) (2-4) % Baso % (Auto) (0-2) % Neut # (Auto) (4026-7526) /uL Lymph # (Auto) (9400-4366) /uL [place] # (Auto) (0-900) /uL Eos # (Auto) (0-450) /uL Baso # (Auto) (0-100) /uL PT (10.1-12.7) SECONDS INR (0.9-1.3) APTT (26.4-36.2) SECONDS D-Dimer < 200 (<230) ng/mL Sodium (137-145) mmol/L Potassium (3.4-5.1) mmol/L Chloride (98-107) mmol/L Carbon Dioxide (22-32) mmol/L BUN (9-20) mg/dL Creatinine (0.66-1.25) mg/dL Estimated GFR (>60) mL/min BUN/Creatinine Ratio (6-22) Glucose (70-100) mg/dL Calcium (8.4-10.2) mg/dL Magnesium (1.6-2.3) mg/dL Total Bilirubin (0.2-1.3) mg/dL AST (17-59) IU/L ALT (<50) IU/L Alkaline Phosphatase (38-126) U/L Ammonia < 9 L (9-30) umol/L Total Creatine Kinase (55-170) U/L CK-MB (CK-2) (<2.37) ng/mL CK-MB (CK-2) Rel Index (1.5-5.0) % Troponin I (0.01-0.034) ng/mL NT-Pro-B Natriuret Pep (<125) pg/mL Total Protein (6.3-8.2) g/dL Albumin (3.5-5.0) g/dL Globulin (1.7-4.1) g/dL Albumin/Globulin Ratio (1.0-2.8) U Opiates 300ng/mL cut (Negative) Ur Oxycodone Screen (Negative) Urine Methadone Screen (Negative) Ur Barbiturates Screen (Negative) U Tricyclic Antidepress (Negative) Ur Phencyclidine Scrn (Negative) Ur Amphetamines Screen (Negative) U Methamphetamines Scrn (Negative) Ur MDMA Scrn (Ecstasy) (Negative) U Benzodiazepines Scrn (Negative) Urine Cocaine Screen (Negative) U Marijuana (THC) Screen (Negative) Ethyl Alcohol 108 H ( - 10) mg/dL 02/11/20 Range/Units 00:05 WBC (4.5-11.0) X10^3/uL RBC (4.5-5.9) X10^6/uL Hgb (13.5-17.5) g/dL Hct (41-53) % MCV (80-100) fL MCH (26-34) PG MCHC (30-36) % RDW (11.6-14.8) % Plt Count (150-400) X10^3/uL Neut % (Auto) (50-75) % Lymph % (Auto) (25-40) % [place] % (Auto) (3-14) % Eos % (Auto) (2-4) % Baso % (Auto) (0-2) % Neut # (Auto) (5823-4268) /uL Lymph # (Auto) (1406-0310) /uL [place] # (Auto) (0-900) /uL Eos # (Auto) (0-450) /uL Baso # (Auto) (0-100) /uL PT (10.1-12.7) SECONDS INR (0.9-1.3) APTT (26.4-36.2) SECONDS D-Dimer (<230) ng/mL Sodium (137-145) mmol/L Potassium (3.4-5.1) mmol/L Chloride (98-107) mmol/L Carbon Dioxide (22-32) mmol/L BUN (9-20) mg/dL Creatinine (0.66-1.25) mg/dL Estimated GFR (>60) mL/min BUN/Creatinine Ratio (6-22) Glucose (70-100) mg/dL Calcium (8.4-10.2) mg/dL Magnesium (1.6-2.3) mg/dL Total Bilirubin (0.2-1.3) mg/dL AST (17-59) IU/L ALT (<50) IU/L Alkaline Phosphatase (38-126) U/L Ammonia (9-30) umol/L Total Creatine Kinase (55-170) U/L CK-MB (CK-2) (<2.37) ng/mL CK-MB (CK-2) Rel Index (1.5-5.0) % Troponin I (0.01-0.034) ng/mL NT-Pro-B Natriuret Pep (<125) pg/mL Total Protein (6.3-8.2) g/dL Albumin (3.5-5.0) g/dL Globulin (1.7-4.1) g/dL Albumin/Globulin Ratio (1.0-2.8) U Opiates 300ng/mL cut Negative (Negative) Ur Oxycodone Screen Negative (Negative) Urine Methadone Screen Negative (Negative) Ur Barbiturates Screen Negative (Negative) U Tricyclic Antidepress Positive H (Negative) Ur Phencyclidine Scrn Negative (Negative) Ur Amphetamines Screen Negative (Negative) U Methamphetamines Scrn Negative (Negative) Ur MDMA Scrn (Ecstasy) Negative (Negative) U Benzodiazepines Scrn Negative (Negative) Urine Cocaine Screen Negative (Negative) U Marijuana (THC) Screen Positive H (Negative) Ethyl Alcohol ( - 10) mg/dL Urine Dip Bedside Urine Glucose Negative Bedside Urine Bilirubin - Negative Bedside Urine Ketone - Negative Urine Specific [place] 1.010 Bedside Urine Occult Blood - Negative Bedside Urine pH 5.0 Bedside Urine Protein - Negative Bedside Urine Urobilinogen - Negative Bedside Urine Nitrite - Negative Bedside Urine Leukocytes - Negative Esterase Imaging Data CT scan - head: Radiologist's Impression: DO Lencho Dillon Patient Imaging - Surya Mcclain 59 M 1960 ACTIVITY DATE EXAM STATUS AUTHOR 02/10/20 20:56 [place] [address] CT Scan Report Signed Patient: Surya Mcclain JMR#: [id number] : [id number]:[id number] Age/Sex: 59 / MDate of Service: 02/10/20 Loc: ED Accession Number: [id number] Procedure: CT head/brain wo con Ordering Provider: Gabriel Hawkins D.O. PROCEDURE: CT HEAD/BRAIN WO CON INDICATIONS: altered, confused, slurring TECHNIQUE: Noncontrast 4.5 mm thick angled axial sections acquired from the foramen magnum to the vertex, with coronal and sagittal reformats. For radiation dose reduction, the following was used: automated exposure control, adjustment of mA and/or kV according to patient size. COMPARISON: None. FINDINGS: Image quality: Excellent. CSF spaces: Basal cisterns are patent. No extra-axial fluid collections. Ventricles are normal in size and shape. Brain: No midline shift. No intracranial masses or hemorrhage. Virgen-white matter interface is normal. Skull and face: Calvarium and visualized facial bones are intact, without suspicious lesions. Sinuses: Visualized sinuses and mastoids are clear. IMPRESSION: 1. No acute intracranial process. Dictated by: Margie Bar M.D. on 02/10/2020 at 21:38 Approved by: Margie Bar M.D. on 02/10/2020 at 21:38 MDM Narrative Medical decision making narrative: Multiple etiologies for patient's symptoms considered including: [Alcohol intoxication versus for an Achilles encephalopathy versus electrolyte abnormality versus traumatic injury versus other] Patient's symptoms improved over duration of stay with above-stated therapies. Findings and discharge diagnosis discussed with patient/family followed by verbalization of understanding Return precautions discussed with patient/family whom verbalize understanding. Discharge Plan Departure Patient Disposition: Home Clinical Impression: Abdominal hematoma Hypertension Qualifiers: Hypertension type: essential hypertension Qualified Code(s): I10 - Essential (primary) hypertension Discharge Date/Time: 02/11/20 01:24 Instructions: Essential Hypertension Activity Restrictions/Additional Instructions: *You have been diagnosed with [high blood pressure, abdominal wall contusion] *What to do: *Take medications as directed *Follow up with your primary care provider in 2-3 days, call for an appointment. Let them know you were seen in the Emergency Department and that we ask that you be seen in follow up *Return to ER if you should have any new, worsening or concerning symptoms
[2020-02-10] MEDS: THIAMINE 400 MG in SODIUM CHLORIDE 0.9% 50 ML 216 ML IV (21:12)
[2020-02-10 21:23] LABS: Add Manual Diff / Slide Review NO; Basophils Absolute Auto 0 /uL (0-100); Basophils Percent Auto 0.5 % (0-2); Eosinophils Absolute Auto 200 /uL (0-450); Eosinophils Percent Auto 2.1 % (2-4); Hematocrit 48.5 % (41-53); Hemoglobin 16.9 g/dL (13.5-17.5); Lymphocytes Absolute Auto 1400 /uL (1100-4500); Lymphocytes Percent Auto 17.6 % (25-40); Mean Corpuscular HGB Conc 34.8 % (30-36); Mean Corpuscular Hemoglobin 33.2 PG (26-34); Mean Corpuscular Volume 95.5 fL (80-100); Monocytes Absolute Auto 600 /uL (0-900); Monocytes Percent Auto 7.7 % (3-14); Neutrophils Absolute Auto 5800 /uL (1500-7000); Neutrophils Percent Auto 72.1 % (50-75); Platelet Count 154 X10^3/uL (150-400); Red Blood Cell Count 5.08 X10^6/uL (4.5-5.9); Red Cell Distribution Width 13.7 % (11.6-14.8); White Blood Cell Count 8.1 X10^3/uL (4.5-11.0)
[2020-02-10 21:29] LABS: Prothrombin Time 11.4 SECONDS (10.1-12.7)
[2020-02-10 21:32] LABS: PTT Partial Thromboplastin Tim 30 SECONDS (26.4-36.2)
[2020-02-10 21:34] LABS: Alanine Aminotransferase 106 IU/L (<50); Albumin 4.4 g/dL (3.5-5.0); Albumin Globulin Ratio 1.6 (1.0-2.8); Alkaline Phosphatase 55 U/L (38-126); Aspartate Aminotransferase 77 IU/L (17-59); BUN Creatinine Ratio 16.8 (6-22); Bilirubin Total 0.5 mg/dL (0.2-1.3); Blood Urea Nitrogen 17 mg/dL (9-20); Carbon Dioxide 25 mmol/L (22-32); Chloride 102 mmol/L (98-107); Creatine Kinase 433 U/L (55-170); Estimated Glomerular Filt Rate > 60.0 mL/min (>60); Globulin 2.7 g/dL (1.7-4.1); Glucose 210 mg/dL (70-100); HEMOLYSIS 18 (0-50); Magnesium 1.8 mg/dL (1.6-2.3); Potassium 4.1 mmol/L (3.4-5.1); Sodium 138 mmol/L (137-145); Total Protein 7.1 g/dL (6.3-8.2)
[2020-02-10 21:46] LABS: NT-proBNP (BNP-Adult 18+) 37 pg/mL (<125); Troponin I < 0.012 ng/mL (0.01-0.034)
[2020-02-10 21:49] LABS: CKMB % Relative Index 0.9 % (1.5-5.0); Creatine Kinase MB 3.77 ng/mL (<2.37)
[2020-02-10 21:59] LABS: Ethanol (ETOH) 108 mg/dL
[2020-02-10 22:41] LABS: D Dimer < 200 ng/mL (<230)
--- NOTE | 2020-02-10 22:43 | DI.CT.S_ITS ---
PROCEDURE: CT CHEST ABD PEL W CON INDICATIONS: hypoxia, anterior chest/abd pain bruising, trauma TECHNIQUE: After the administration of intravenous contrast, 5 mm thick sections acquired from the lung apices to the symphysis. 2.5 mm thick coronal and sagittal reformats were acquired. Additional 7 mm thick coronal maximum intensity projection (MIP) reformats acquired through the lungs. Optional 10-minute delayed imaging may be performed from the kidneys to the bladder. For radiation dose reduction, the following was used: automated exposure control, adjustment of mA and/or kV according to patient size. COMPARISON: [facility], CT, CT CHEST W CON, 12/02/2019, 20:22. FINDINGS: Image quality: Excellent. CHEST: Lungs: There is a 4 mm nodule in lingula (series 3, image 204). No pulmonary contusions or lacerations. No acute airspace opacities. No pneumothorax or hemothorax. Central and peripheral airways appear patent and normal in caliber. Mediastinum: No mediastinal hematomas. Heart size is normal. No pericardial effusion. Thoracic aorta and pulmonary arteries demonstrate normal size and enhancement. No mediastinal or hilar adenopathy. Esophagus is normal in caliber. No hiatal hernia. Chest wall: No rib fractures. No subcutaneous emphysema. No axillary or supraclavicular adenopathy. Thyroid gland is normal. There is an oval-shaped fatty mass in the right subpectoral/axillary area measuring 5.1 x 6.6 x 8.8 cm, compatible with a lipoma. It appears unchanged since 12/02/2019. ABDOMEN: Solid organs: Severe hepatic steatosis. Liver is normal in size and enhancement, without lacerations. Gallbladder is normal. Biliary system is non-dilated. Pancreas enhances normally, without transection. Spleen is normal in size and enhancement, without lacerations. No adrenal hematomas. Both kidneys enhance normally, without hydronephrosis or lacerations. Peritoneum and bowel: There are scattered colonic diverticula. No CT findings to suggest acute diverticulitis. Normal appendix. No free fluid or air. Unenhanced bowel loops demonstrate normal wall thickness and caliber. Nodes and vessels: No retroperitoneal or mesenteric adenopathy. There is mesenteric stranding. Numerous small subcentimeter mesenteric lymph nodes are present. Aorta and inferior vena cava are normal in size and enhancement. Miscellaneous: No ventral hernias. PELVIS: Genitourinary: Bladder wall thickness is normal. Miscellaneous: No inguinal hernias or adenopathy. Bones: Pelvic ring and hip joints appear intact. No vertebral compression fractures. Degenerative changes are noted in thoracic and lumbar spine. IMPRESSION: 1. No acute traumatic injuries in thorax, abdomen or pelvis. 2. A 4 mm nodule in the lingula. Please see in close follow-up recommendation. 3. A large lipoma in the right subpectoral/axillary area, unchanged in size. 4. Diverticulosis without acute diverticulitis. 5. Severe hepatic steatosis. 6. Mesenteric stranding and numerous small mesenteric lymph nodes consistent with mesenteric panniculitis and adenitis. Fleischner Society criteria for SOLID lung nodule followup. Nodule size (mm)Low-risk patientHigh-risk patient?4No follow-up neededFollow-up at 12 mo; if no change, no further follow-up>[id number] CT at 12 mo; if no change, no further follow-up needed.Initial follow-up CT at 6-12 mo, then 18-24 mo if no change. >6-8Initial follow-up CT at 6-12 mo, then 18-24 mo if no change. Initial follow-up CT at 3-6 mo, then 9-12 mo and 24 mo if no change. >8Follow-up CT at 3, 9, 24 mo. Or PET and/or biopsy.Same as for low-risk pts. Dictated by: Meenu Kimble M.D. on 02/11/2020 at 10:30 Approved by: Meenu Kimble M.D. on 02/11/2020 at 10:40
[2020-02-10 22:44] LABS: Ammonia (NH3) < 9 umol/L (9-30)
--- NOTE | 2020-02-11 00:12 | PC.NURSE ---
Pt ambulated to bathroom, steady gait. denies any dizziness.
[2020-02-11 00:18] LABS: Ur Creatinine 20 (Normal); Ur Specific Gravity 1.015 (Normal)
[2020-02-11 00:19] LABS: UR Morphine/Opiate cutoff 300 Negative (Negative); Urine Amphetamines Negative (Negative); Urine Barbiturates Negative (Negative); Urine Benzodiazepines Negative (Negative); Urine Cocaine Negative (Negative); Urine MDMA Negative (Negative); Urine Methadone Negative (Negative); Urine Methamphetamines Negative (Negative); Urine Oxycodone Negative (Negative); Urine Phencyclidine Negative (Negative); Urine Tetrahydrocannabinol Positive (Negative); Urine Tricyclic Antidepressant Positive (Negative); Urine pH 5 (Normal)
== END 2020-02-11 01:24 | disposition home or self-care (01) ==
PROVIDERS: Emergency Provider Emergency Medicine
DX: S30.1XXA Contusion of abdominal wall, initial encounter (principal); I10 Essential (primary) hypertension; R41.82 Altered mental status, unspecified; R47.81 Slurred speech; R07.81 Pleurodynia
CPT/HCPCS: 36415; 70450; 71260; 74177; 80053; 80305; 80320; 81003; 82140; 82550; 82553; 83735; 83880; 84484; 85025; 85379; 85610; 85730; 93005; 96360; 99284; Q9967

== ENCOUNTER 2020-05-08 18:49 | Emergency (ER) | payer MEDICARE, OTHER, SELFPAY ==
[2020-05-08] VITALS (36 sets, daily range): BP systolic 164–214; BP diastolic 83–142; PULSE 97–115; RESP 19–26; TEMP 36.9; O2SAT 91–98; BMI 38.3
--- NOTE | 2020-05-08 19:07 | DI.RAD.S_ITS ---
PROCEDURE: XR CHEST 1V INDICATIONS: chest pain TECHNIQUE: One view of the chest was acquired. COMPARISON: [facility], CR, XR CHEST 1V, 12/02/2019, 19:29. FINDINGS: Surgical changes and devices: None. Lungs and pleura: Lungs are clear. No pleural effusions or pneumothorax. Mediastinum: Mediastinal contours appear normal. Heart size is normal. Bones and chest wall: No suspicious bony lesions. Overlying soft tissues appear unremarkable. IMPRESSION: No acute cardiopulmonary abnormality. Dictated by: Michel Ambriz M.D. on 05/08/2020 at 19:34 Approved by: Michel Ambriz M.D. on 05/08/2020 at 19:35
--- NOTE | 2020-05-08 19:07 | DI.CT.S_ITS ---
PROCEDURE: CT HEAD/BRAIN WO CON INDICATIONS: salmon TECHNIQUE: Noncontrast 4.5 mm thick angled axial sections acquired from the foramen magnum to the vertex, with coronal and sagittal reformats. For radiation dose reduction, the following was used: automated exposure control, adjustment of mA and/or kV according to patient size. COMPARISON: [facility], CT, CT HEAD/BRAIN WO CON, 02/10/2020, 21:20. FINDINGS: Image quality: Excellent. CSF spaces: Basal cisterns are patent. No extra-axial fluid collections. Ventricles are normal in size and shape. Brain: No midline shift. No intracranial masses or hemorrhage. Virgen-white matter interface is normal. Skull and face: Calvarium and visualized facial bones are intact, without suspicious lesions. Sinuses: Visualized sinuses and mastoids are clear. IMPRESSION: No acute intracranial abnormality. Dictated by: Michel Ambriz M.D. on 05/08/2020 at 19:33 Approved by: Michel Ambriz M.D. on 05/08/2020 at 19:34
--- NOTE | 2020-05-08 19:11 | ED.GENADULT ---
HPI - General Adult General Chief complaint: Hypertension Stated complaint: HIGH BLOOD PRESSURE Time Seen by Provider: 05/08/20 18:55 Source: patient and family Mode of arrival: Ambulatory History of Present Illness HPI narrative: Patient here for complaints of chest pain and elevated blood pressure. Ongoing since May 2019. His average systolic is anywhere between 180-200/90-110.. Patient being evaluated by his primary care at the [place]. Has been changing his medications for blood pressure. Currently metoprolol 50 mg twice a day. As well as losartan 50 mg twice a day. Patient states lisinopril had worked for him in the past and these stated that it was removed because he had a dry cough. However he is still remains having a dry cough despite being off of lisinopril. He was on amlodipine but it causes weight gain. Two weeks ago had brief moment of altered mental status. Today had brief left-sided chest pain. No syncope. No numbness tingling weakness that is new. Has carpal tunnel syndrome which is not new. Has had admissions to the hospital 3 times in the last year for hypertensive urgency. Denies any headache at this time. Today he had 1st appointment with pain management in [place], his systolic blood pressure was 250. [facility] [place] [facility] Related Data Allergies Allergy/AdvReac Type Severity Reaction Status Date / Time No Known Drug Allergies Allergy Verified 05/08/20 19:07 Review of Systems Review of Systems Narrative: GENERAL: Denies chills, fatigue, malaise, fever, sweats. HEENT: Denies sinus pain, ear pain, sore throat, difficulty swallowing RESPIRATORY: Denies dyspnea, cough CARDIOVASCULAR: Complains chest pain, palpitations, edema, GASTROINTESTINAL: Denies nausea, vomiting, abdominal pain, diarrhea, constipation, melena. : Denies dysuria, frequency, hematuria MUSCULOSKELETAL: denies muscle or bony pain SKIN: Denies rash, skin lesions NEUROLOGIC: Denies weakness, headache, numbness, change in speech, confusion PSYCHIATRIC: No SI or HI or hallucinations ROS Unobtainable: All systems reviewed & are unremarkable except as noted in HPI and below Patient History Medical History HTN (hypertension) (Acute) Social History Smoking Status: Never smoker Smoking Status: Never smoker alcohol intake frequency: 0-2 drinks per day Substance Use Type: marijuana Exam Narrative Exam Narrative: GENERAL: patient appears stated age. Well-nourished, well-developed patient, in no distress, not toxic not dyspneic HEAD: Normocephalic. EYES: Pupils equal round and reactive. No scleral icterus. No injection no discharge ENT: Mucous membranes moist. No drooling no tongue elevation no trismus no malocclusion NECK: Trachea midline. Non tender CARDIOVASCULAR: Regular rate and rhythm without murmurs, gallops, or rubs. RESPIRATORY: Clear to auscultation. Breath sounds equal bilaterally. No wheezes, rales, or rhonchi. GASTROINTESTINAL: Abdomen soft, non-tender, nondistended. EXTREMITIES: No gross deformities. BACK: Nontender without deformity or crepitance. No flank tenderness. NEURO: AOx4. SKIN: Warm and dry PSYCH: Not anxious, is cooperative Initial Vital Signs Initial Vital Signs: Vital Signs Temperature 98.4 F 05/08/20 19:00 Pulse Rate 115 H 05/08/20 19:00 Respiratory Rate 20 05/08/20 19:00 Blood Pressure 198/116 H 05/08/20 19:00 Pulse Oximetry 98 05/08/20 19:00 Course Course Course Narrative: Time 7:35 p.m.. Without treatment blood pressure currently 170/97. Pulse 104. Patient has not had his evening blood pressure medications yet. Will order that for him now Decision to Admit Date: 05/08/20 Decision to Admit time: 22:18 Orders Ordered: ED Orders 05/08/20 19:00 Complete Blood Count AUTO DIFF Stat Comprehensive Metabolic Panel Stat Lipase Stat Troponin & CK Cardiac Panel Stat 05/08/20 19:07 CT head/brain wo con Stat XR chest 1V Stat EKG-12 Lead Stat 05/08/20 20:55 COVID19 Stat Discontinued Medications Aspirin (Aspirin Chew) 324 mg PO NOW ONE Stop: 05/08/20 22:21 Last Admin: 05/08/20 22:31 Dose: 324 mg Documented by: RMARTIN Nicardipine HCl 25 mg/ Sodium (Chloride) 250 mls @ 50 mls/hr IV TITRATE KOSTAS; Protocol Last Admin: 05/08/20 19:43 Dose: Not Given Documented by: RMARTIN Nicardipine HCl 25 mg/ Sodium (Chloride) 250 mls @ 50 mls/hr IV TITRATE KOSTAS; Protocol Last Titration: 05/08/20 23:25 Dose: 0 mg/hr, 0 mls/hr Documented by: Titration: 05/08/20 23:02 Dose: 3 mg/hr, 30 mls/hr Documented by: Titration: 05/08/20 22:46 Dose: 1.5 mg/hr, 15 mls/hr Documented by: Titration: 05/08/20 22:42 Dose: 0 mg/hr, 0 mls/hr Documented by: Titration: 05/08/20 22:37 Dose: 12.5 mg/hr, 125 mls/hr Documented by: Titration: 05/08/20 22:27 Dose: 10 mg/hr, 100 mls/hr Documented by: Titration: 05/08/20 22:21 Dose: 7.5 mg/hr, 75 mls/hr Documented by: Admin: 05/08/20 22:01 Dose: 5 mg/hr, 50 mls/hr Documented by: GAVINARTIN Losartan Potassium (Cozaar) 50 mg PO NOW ONE Stop: 05/08/20 19:35 Last Admin: 05/08/20 19:46 Dose: 50 mg Documented by: RMARTIN Metoprolol Succinate (Toprol Xl) 50 mg PO NOW ONE Stop: 05/08/20 19:35 Last Admin: 05/08/20 19:46 Dose: 50 mg Documented by: CAL Reevaluation(s) Reevaluation #1: Patient blood pressure has been waxing waning. No chest pain at this time. At this time will start nicardipine. At 1 point it was 170/97 before nicardipine drip. However now has sustaining higher levels. No headache Time: 22:18 Reevaluation #2: Blood pressure improved at time of discharge. Targeted MAP attained with nicardipine drip Time: 23:06 Consultations Consultation #1: Spoke with [facility]. Hospitalist Dr. Boston, she will accept patient to their ICU. I informed her that I did speak with tag clerk Dr. Oleary, he recommends patient be admitted to medicine service for hypertensive emergency and he follow for consult Time: 22:19 Vital Signs Vital signs: Vital Signs - 8 hr 05/08/20 19:00 05/08/20 19:22 05/08/20 19:23 Temperature 98.4 F Pulse Rate 115 H 101 H 103 H Respiratory Rate 20 21 Blood Pressure 198/116 H Pulse Oximetry 98 93 94 05/08/20 19:24 05/08/20 19:29 05/08/20 19:30 Temperature Pulse Rate 104 H 108 H 107 H Respiratory Rate 22 23 22 Blood Pressure 184/114 H 170/97 H Pulse Oximetry 92 93 92 05/08/20 19:46 05/08/20 20:00 05/08/20 20:30 Temperature Pulse Rate 97 H 106 H 105 H Respiratory Rate 20 22 Blood Pressure 170/97 H 180/100 H Pulse Oximetry 93 92 05/08/20 20:31 05/08/20 21:00 05/08/20 21:31 Temperature Pulse Rate 105 H 102 H 103 H Respiratory Rate 21 20 Blood Pressure 164/98 H 169/104 H Pulse Oximetry 93 91 94 05/08/20 21:32 05/08/20 21:34 05/08/20 22:00 Temperature Pulse Rate 102 H 101 H 98 H Respiratory Rate 19 19 22 Blood Pressure 214/114 H 210/112 H Pulse Oximetry 96 95 93 05/08/20 22:01 05/08/20 22:04 05/08/20 22:05 Temperature Pulse Rate 100 H 101 H 100 H Respiratory Rate 24 24 24 Blood Pressure 171/104 H 193/142 H Pulse Oximetry 94 94 94 05/08/20 22:06 05/08/20 22:10 05/08/20 22:14 Temperature Pulse Rate 100 H 103 H 108 H Respiratory Rate 26 H 19 24 Blood Pressure 165/109 H 165/109 H Pulse Oximetry 94 94 94 05/08/20 22:15 05/08/20 22:20 05/08/20 22:25 Temperature Pulse Rate 105 H 108 H 105 H Respiratory Rate 21 24 24 Blood Pressure 169/105 H 179/108 H 178/104 H Pulse Oximetry 94 94 94 05/08/20 22:30 05/08/20 22:31 05/08/20 22:35 Temperature Pulse Rate 108 H 110 H 109 H Respiratory Rate 23 24 23 Blood Pressure 171/106 H 178/100 H Pulse Oximetry 94 94 93 05/08/20 22:40 05/08/20 22:45 05/08/20 22:50 Temperature Pulse Rate 109 H 108 H 105 H Respiratory Rate 23 24 24 Blood Pressure 173/84 H 191/88 H 185/86 H Pulse Oximetry 93 93 93 05/08/20 22:54 05/08/20 22:55 05/08/20 23:00 Temperature Pulse Rate 104 H 104 H 105 H Respiratory Rate 24 21 24 Blood Pressure 170/83 H Pulse Oximetry 93 93 93 05/08/20 23:01 05/08/20 23:05 05/08/20 23:06 Temperature Pulse Rate 106 H 107 H Respiratory Rate 25 H 20 Blood Pressure 174/110 H 169/89 H Pulse Oximetry 93 92 Medical Decision Making Differential Diagnosis Differential Diagnosis: Hypertensive emergency/urgency/chest pain Lab Data Lab results reviewed: Yes I reviewed the patient's lab results. Result diagrams: 05/08/20 19:00 05/08/20 19:00 Labs: Lab Results 05/08/20 05/08/20 05/08/20 Range/Units 19:00 19:00 20:55 WBC 9.0 (4.5-11.0) X10^3/uL RBC 5.17 (4.5-5.9) X10^6/uL Hgb 17.1 (13.5-17.5) g/dL Hct 49.0 (41-53) % MCV 94.9 (80-100) fL MCH 33.1 (26-34) PG MCHC 34.9 (30-36) % RDW 13.7 (11.6-14.8) % Plt Count 160 (150-400) X10^3/uL Neut % (Auto) 74.2 (50-75) % Lymph % (Auto) 14.5 L (25-40) % [place] % (Auto) 9.7 (3-14) % Eos % (Auto) 1.0 L (2-4) % Baso % (Auto) 0.6 (0-2) % Neut # (Auto) 6700 (3781-6007) /uL Lymph # (Auto) 1300 (5388-2794) /uL [place] # (Auto) 900 (0-900) /uL Eos # (Auto) 100 (0-450) /uL Baso # (Auto) 100 (0-100) /uL Sodium 137 (137-145) mmol/L Potassium 4.0 (3.4-5.1) mmol/L Chloride 100 (98-107) mmol/L Carbon Dioxide 30 (22-32) mmol/L BUN 20 (9-20) mg/dL Creatinine 0.89 (0.66-1.25) mg/dL Estimated GFR > 60.0 (>60) mL/min BUN/Creatinine Ratio 22.5 H (6-22) Glucose 202 H (70-100) mg/dL Calcium 9.3 (8.4-10.2) mg/dL Total Bilirubin 0.6 (0.2-1.3) mg/dL AST 69 H (17-59) IU/L ALT 85 H (<50) IU/L Alkaline Phosphatase 81 (38-126) U/L Total Creatine Kinase 220 H (55-170) U/L CK-MB (CK-2) 2.13 (<2.37) ng/mL CK-MB (CK-2) Rel Index 1.0 L (1.5-5.0) % Troponin I < 0.012 (0.01-0.034) ng/mL Total Protein 7.6 (6.3-8.2) g/dL Albumin 4.7 (3.5-5.0) g/dL Globulin 2.9 (1.7-4.1) g/dL Albumin/Globulin Ratio 1.6 (1.0-2.8) Lipase 64 (23-300) U/L COVID-19 PCR Negative (Negative) Imaging Data CT scan - head: Radiologist's Impression: [address] [address] [address] Scan Report Signed Patient: Surya Mcclain JMR#: [id number] : 1Acct:[id number] Age/Sex: 59 / MDate of Service: 05/08/20 Loc: ED Accession Number: [id number] Procedure: CT head/brain wo con Ordering Provider: Andrea Bee MD PROCEDURE: CT HEAD/BRAIN WO CON INDICATIONS: salmon TECHNIQUE: Noncontrast 4.5 mm thick angled axial sections acquired from the foramen magnum to the vertex, with coronal and sagittal reformats. For radiation dose reduction, the following was used: automated exposure control, adjustment of mA and/or kV according to patient size. COMPARISON: [facility], CT, CT HEAD/BRAIN WO CON, 02/10/2020, 21:20. FINDINGS: Image quality: Excellent. CSF spaces: Basal cisterns are patent. No extra-axial fluid collections. Ventricles are normal in size and shape. Brain: No midline shift. No intracranial masses or hemorrhage. Virgen-white matter interface is normal. Skull and face: Calvarium and visualized facial bones are intact, without suspicious lesions. Sinuses: Visualized sinuses and mastoids are clear. IMPRESSION: No acute intracranial abnormality. Dictated by: Michel Ambriz M.D. on 05/08/2020 at 19:33 Approved by: Michel Ambriz M.D. on 05/08/2020 at 19:34 Chest x-ray: Radiologist's Impression: [address] [address] XRay Report Signed Patient: Surya Mcclain JMR#: [id number] : 1Acct:[id number] Age/Sex: 59 / MDate of Service: 05/08/20 Loc: ED Accession Number: [id number] Procedure: XR chest 1V Ordering Provider: Andrea Bee MD PROCEDURE: XR CHEST 1V INDICATIONS: chest pain TECHNIQUE: One view of the chest was acquired. COMPARISON: [facility], CR, XR CHEST 1V, 12/02/2019, 19:29. FINDINGS: Surgical changes and devices: None. Lungs and pleura: Lungs are clear. No pleural effusions or pneumothorax. Mediastinum: Mediastinal contours appear normal. Heart size is normal. Bones and chest wall: No suspicious bony lesions. Overlying soft tissues appear unremarkable. IMPRESSION: No acute cardiopulmonary abnormality. Dictated by: Michel Ambriz M.D. on 05/08/2020 at 19:34 Approved by: Michel Ambriz M.D. on 05/08/2020 at 19:35 ECG Data Attestation: I personally reviewed and interpreted this ECG as follows: Interpretation: Sinus tachycardia/ventricular rate 106 otherwise normal EKG no ST elevation or depression Repeat EKG at 9:21 p.m. normal sinus rhythm normal EKG rate [address] elevation or depression MDM Narrative Medical decision making narrative: I am informed by hospitalist group here that we do not have ability to do stress test tomorrow. Patient here with chest pain complaint as well. We will have to transfer patient. Discharge Plan Departure Patient Disposition: [facility] Clinical Impression: Hypertensive emergency Discharge Date/Time: 05/08/20 23:25
[2020-05-08 19:20] LABS: Add Manual Diff / Slide Review NO; Basophils Absolute Auto 100 /uL (0-100); Basophils Percent Auto 0.6 % (0-2); Eosinophils Absolute Auto 100 /uL (0-450); Hemoglobin 17.1 g/dL (13.5-17.5); Lymphocytes Absolute Auto 1300 /uL (1100-4500); Lymphocytes Percent Auto 14.5 % (25-40); Mean Corpuscular HGB Conc 34.9 % (30-36); Mean Corpuscular Hemoglobin 33.1 PG (26-34); Mean Corpuscular Volume 94.9 fL (80-100); Monocytes Absolute Auto 900 /uL (0-900); Monocytes Percent Auto 9.7 % (3-14); Neutrophils Absolute Auto 6700 /uL (1500-7000); Neutrophils Percent Auto 74.2 % (50-75); Platelet Count 160 X10^3/uL (150-400); Red Blood Cell Count 5.17 X10^6/uL (4.5-5.9); Red Cell Distribution Width 13.7 % (11.6-14.8)
[2020-05-08 19:22] LABS: Alanine Aminotransferase 85 IU/L (<50); Albumin 4.7 g/dL (3.5-5.0); Albumin Globulin Ratio 1.6 (1.0-2.8); Alkaline Phosphatase 81 U/L (38-126); Aspartate Aminotransferase 69 IU/L (17-59); BUN Creatinine Ratio 22.5 (6-22); Bilirubin Total 0.6 mg/dL (0.2-1.3); Blood Urea Nitrogen 20 mg/dL (9-20); Calcium 9.3 mg/dL (8.4-10.2); Carbon Dioxide 30 mmol/L (22-32); Chloride 100 mmol/L (98-107); Creatine Kinase 220 U/L (55-170); Estimated Glomerular Filt Rate > 60.0 mL/min (>60); Globulin 2.9 g/dL (1.7-4.1); Glucose 202 mg/dL (70-100); HEMOLYSIS 32 (0-50); Lipase 64 U/L (23-300); Sodium 137 mmol/L (137-145); Total Protein 7.6 g/dL (6.3-8.2)
[2020-05-08 19:33] LABS: Troponin I < 0.012 ng/mL (0.01-0.034)
[2020-05-08 19:37] LABS: Creatine Kinase MB 2.13 ng/mL (<2.37)
[2020-05-08] MEDS: METOPROLOL ER 50 MG TABLET PO (19:46)
[2020-05-08] MEDS: LOSARTAN 50 MG TABLET PO (19:46)
[2020-05-08 21:13] LABS: COVID19 -Nasal RAPID Negative (Negative)
--- NOTE | 2020-05-08 21:13 | PC.NURSE ---
Pt c/o left chest pain, feels like someone punched me. RT paged for repeat EKG, Dr Bee made aware. Pt without distress.
[2020-05-08] MEDS: NICARDIPINE 25 MG in SODIUM CHLORIDE 0.9% 240 ML 50 ML IV (22:01)
[2020-05-08] MEDS: ASPIRIN 81 MG CHEW TAB 324 MG PO (22:31)
--- NOTE | 2020-05-08 23:11 | PC.NURSE ---
See MAR for nicardipine drip titration and VS documentation for accompanying BP changes.
== END 2020-05-08 23:25 | disposition short-term general hospital (02) ==
PROVIDERS: Emergency Provider Emergency Medicine
DX: I16.1 Hypertensive emergency (principal); R07.9 Chest pain, unspecified; R05 Cough; R00.0 Tachycardia, unspecified
CPT/HCPCS: 36415; 70450; 71045; 80053; 82550; 82553; 83690; 84484; 85025; 87635; 93005; 96365; 99285

== ENCOUNTER → 2020-09-06 15:48 | Outpatient (CLI) | payer MEDICARE, SELFPAY ==
--- NOTE | 2020-09-06 15:54 | DI.RAD.S_ITS ---
PROCEDURE: XR THORACIC SPINE 3V INDICATIONS: PAIN TECHNIQUE: 3 views of the thoracic spine were acquired. COMPARISON: None. FINDINGS: Bones: No fractures or dislocations. No suspicious bony lesions. 12 pairs of ribs are noted, and appear intact where visualized. Soft tissues: No paravertebral stripe thickening. IMPRESSION: Mild to moderate mid thoracic degenerative disc disease, no compression fracture found. No subluxation seen. Mild convex leftward scoliosis centered at the middle 3rd of the thoracic spine. Dictated by: Martin Ruiz M.D. on 09/06/2020 at 16:08 Approved by: Martin Ruiz M.D. on 09/06/2020 at 16:09
--- NOTE | 2020-09-06 15:54 | DI.RAD.S_ITS ---
PROCEDURE: XR LUMBAR SPINE 2-3V INDICATIONS: PAIN TECHNIQUE: 3 views of the lumbar spine were acquired. COMPARISON: None. FINDINGS: Bones: 5 non rib-bearing vertebral elements are seen. There is no compression fracture. The thoracolumbar spine has dextroscoliosis with a Sam angle of 16 degrees. There are multilevel degenerative changes with anterior osteophytes at multiple levels. Facet arthrosis is present at L4-5 and L5-S1. There is degenerative disc disease with disc space narrowing at L2-3, L3-4, and L4-5. Soft tissues: Overlying bowel gas pattern is normal. No suspicious soft tissue calcifications. IMPRESSION: 1. Multilevel degenerative changes with facet arthrosis in the lower lumbar spine. 2. Dextroscoliosis with a Sam angle of 16 degrees. 3. Multilevel disc disease at L2-3, L3-4, and L4-5. 4. No acute abnormality. Dictated by: Emery Marshall M.D. on 09/06/2020 at 17:35 Approved by: Emery Marshall M.D. on 09/06/2020 at 17:37
--- NOTE | 2020-09-06 15:55 | DI.RAD.S_ITS ---
PROCEDURE: XR CERVICAL SPINE 2V OR 3V INDICATIONS: PAIN TECHNIQUE: 3 view(s) of the cervical spine were acquired. COMPARISON: None. FINDINGS: Bones: No fractures or dislocations to the T1 level. The lateral masses of C1 appear intact on the odontoid view. No suspicious bony lesions. Degenerative changes are minimal with some calcifications in the anterior longitudinal ligament at C5-6 and C6-7. Soft tissues: No prevertebral soft tissue swelling. IMPRESSION: 1. No acute abnormality. 2. Minimal degenerative changes. Dictated by: Emery Marshall M.D. on 09/06/2020 at 17:33 Approved by: Emery Marshall M.D. on 09/06/2020 at 17:35
== END ==
PROVIDERS: Referring Provider Chiropractor; Visit Provider Chiropractor
DX: M99.04 Segmental and somatic dysfunction of sacral region (principal); M99.02 Segmental and somatic dysfunction of thoracic region; M99.03 Segmental and somatic dysfunction of lumbar region; M50.322 Other cervical disc degeneration at C5-C6 level; M51.34 Other intervertebral disc degeneration, thoracic region; M41.84 Other forms of scoliosis, thoracic region; M51.36 Other intervertebral disc degeneration, lumbar region; M47.816 Spondylosis without myelopathy or radiculopathy, lumbar region; M41.86 Other forms of scoliosis, lumbar region
CPT/HCPCS: 72040; 72072; 72100

== ENCOUNTER → 2020-09-27 13:21 | Outpatient (CLI) | payer MEDICARE, SELFPAY ==
[2020-09-27] MEDS: COVID-19 VACC #1, MRNA(MOD) 100 MCG/0.5 ML VIAL IM (13:34)
== END ==
PROVIDERS: Visit Provider Internal Medicine
DX: Z23 Encounter for immunization (principal)
CPT/HCPCS: 0011A; 91301

== ENCOUNTER → 2020-11-02 12:54 | Outpatient (CLI) | payer MEDICARE, SELFPAY ==
[2020-11-02] MEDS: COVID-19 VACC #2, MRNA(MOD) 100 MCG/0.5 ML VIAL IM (13:00)
== END ==
PROVIDERS: Visit Provider Internal Medicine
DX: Z23 Encounter for immunization (principal)
CPT/HCPCS: 0012A; 91301

== ENCOUNTER → 2021-01-03 11:41 | Outpatient (CLI) | payer MEDICARE, SELFPAY ==
--- NOTE | 2021-01-03 | DI.RAD.S_ITS ---
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 COMPARISON: [facility], , XR LUMBAR SPINE 2-3V, 09/06/2020, 16:03. FINDINGS: Bones: No acute fracture. Multilevel degenerative endplate sclerosis and spurring. Diffuse facet arthropathy. Severe narrowing of the L4-L5 disc space. There is moderate narrowing of the remaining lumbar disc spaces with relative sparing at L1-L2. Mild dextrocurvature centered at L2 as before. Soft tissues: Overlying bowel gas pattern is normal. No suspicious soft tissue calcifications. IMPRESSION: Multilevel lumbar spondylosis and facet arthropathy, grossly unchanged since 09/06/20. Dictated by: Tony Purdy M.D. on 01/03/2021 at 13:18 Approved by: Tony Purdy M.D. on 01/03/2021 at 13:22
--- NOTE | 2021-01-03 | DI.RAD.S_ITS ---
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 COMPARISON: [facility], , XR CERVICAL SPINE 2V OR 3V, 09/06/2020, 16:03. FINDINGS: Bones: No fractures or dislocations to the C7 level. The lateral masses of C1 appear intact on the odontoid view. No suspicious bony lesions. Straightening of the normal lordotic curvature. No definite disc space narrowing. Multilevel degenerative endplate sclerosis and spurring. Diffuse facet arthropathy. Soft tissues: No prevertebral soft tissue swelling. IMPRESSION: Straightening of the normal lordotic curvature. Diffuse facet arthropathy. Dictated by: Tony Purdy M.D. on 01/03/2021 at 13:04 Approved by: Tony Purdy M.D. on 01/03/2021 at 13:18
--- NOTE | 2021-01-03 | DI.RAD.S_ITS ---
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 COMPARISON: [facility], CR, XR THORACIC SPINE 3V, 09/06/2020, 16:03. FINDINGS: Bones: No acute fracture identified. Multilevel degenerative endplate sclerosis and spurring. Diffuse facet arthropathy. Mild levocurvature of the lower thoracic spine. Minimal diffuse disc space narrowing. Soft tissues: No paravertebral stripe thickening. IMPRESSION: Diffuse discogenic changes and mild levocurvature as above. Dictated by: Tony Purdy M.D. on 01/03/2021 at 13:28 Approved by: Tony Purdy M.D. on 01/03/2021 at 13:50
== END ==
PROVIDERS: Referring Provider Chiropractor; Visit Provider Chiropractor
DX: M99.01 Segmental and somatic dysfunction of cervical region (principal); M50.322 Other cervical disc degeneration at C5-C6 level; M47.812 Spondylosis without myelopathy or radiculopathy, cervical region; M99.02 Segmental and somatic dysfunction of thoracic region; M47.814 Spondylosis without myelopathy or radiculopathy, thoracic region; M51.34 Other intervertebral disc degeneration, thoracic region; M99.03 Segmental and somatic dysfunction of lumbar region; M51.37 Other intervertebral disc degeneration, lumbosacral region; M47.816 Spondylosis without myelopathy or radiculopathy, lumbar region
CPT/HCPCS: 72040; 72070; 72100

== ENCOUNTER → 2021-08-02 15:34 | Outpatient (CLI) | payer MEDICARE, SELFPAY ==
--- NOTE | 2021-08-02 | DI.MRI.S_ITS ---
PROCEDURE: MR HEAD/BRAIN WO/W CON INDICATIONS: HEADACHE TECHNIQUE: Noncontrast axial T1 spin echo, axial T2 fast spin echo, sagittal and axial FLAIR, coronal T2 fast spin echo, axial gradient echo, axial diffusion and ADC through the brain. After the administration of contrast, axial and coronal T1 spin echo with fat saturation through the brain. COMPARISON: [facility], MR, MR ANGIO HEAD WO CON, 08/02/2021, 16:31. [facility], MR, MR CERVICAL SPINE WO CON, 08/02/2021, 16:03. [facility], CT, CT HEAD/BRAIN WO CON, 05/08/2020, 19:14. FINDINGS: Image quality: Excellent. CSF spaces: Basal cisterns are patent. No extra-axial fluid collections. Ventricles are normal in size and shape. Brain: No midline shift. No intracranial bleeds or masses. No abnormal intracranial enhancement. There is cerebral volume loss for age. There is periventricular white matter chronic small vessel ischemic change. The brainstem appears normal. Diffusion-weighted images demonstrate no acute ischemic insults. No chronic ischemic insults. Normal intravascular flow voids are present. Skull and face: Calvarial marrow is normal in signal. Orbits appear normal. Sinuses: Sinuses and mastoids appear clear. IMPRESSION: Unremarkable intracranial study, without an imaging explanation found for the patient's presenting history of headache. No masses or abnormal enhancement can be seen. Dictated by: Florentin Porras M.D. on 08/02/2021 at 16:21 Approved by: Florentin Porras M.D. on 08/02/2021 at 16:22
--- NOTE | 2021-08-02 | DI.MRI.S_ITS ---
PROCEDURE: MR ANGIO HEAD WO CON INDICATIONS: Headache, unspecified TECHNIQUE: Noncontrast axial 3-D [id number] MR angiogram, with 3-dimensional maximum intensity projection (MIP) reformats of the internal carotid arteries and posterior circulation then performed. COMPARISON: [facility], MR, MR HEAD/BRAIN WO/W CON, 08/02/2021, 16:40. [facility], MR, MR CERVICAL SPINE WO CON, 08/02/2021, 16:03. FINDINGS: Image quality: Excellent. Anterior circulation: Intracranial internal carotid arteries demonstrate normal size and intraluminal flow signal. The flow within the paired anterior cerebral arteries is normal and symmetric. The flow within the middle cerebral arteries is normal and symmetric. The anterior communicating artery is not well seen. No stenoses, occlusions, or aneurysms. Posterior circulation: Visualized portions of the vertebral arteries demonstrate normal caliber, and join to form a normal appearing basilar artery. There is a prominent right posterior communicating artery seen, with an accompanying diminutive right P1 segment. This is attributed to a type origin of the right posterior cerebral artery, which is considered to be a normal developmental variant of typically no clinical consequence. The flow within the posterior cerebral arteries is normal and symmetric. No stenoses, occlusions, or aneurysms. IMPRESSION: Unremarkable intracranial angiogram, without findings of aneurysm seen in this patient with a presenting history of headache. Dictated by: Florentin Porras M.D. on 08/02/2021 at 16:26 Approved by: Florentin Porras M.D. on 08/02/2021 at 16:27
--- NOTE | 2021-08-02 | DI.MRI.S_ITS ---
PROCEDURE: MR CERVICAL SPINE WO CON INDICATIONS: HEADACHE TECHNIQUE: Noncontrast sagittal T1 spin echo and T2 fast spin echo, sagittal STIR, foraminal oblique sagittal T2 fast spin echo, and axial gradient echo or T2 fast spin echo through the cervical spine. COMPARISON: [facility], MR, MR HEAD/BRAIN WO/W CON, 08/02/2021, 16:40. [facility], MR, MR ANGIO HEAD WO CON, 08/02/2021, 16:31. [facility], CR, XR CERVICAL SPINE 2V OR 3V, 01/03/2021, 11:45. FINDINGS: Image quality: This examination is limited by involuntary motion artifact. Alignment and Curvature: There is normal bony alignment. Bone Marrow: Marrow demonstrates normal overall signal. Spinal Cord: Visualized spinal cord has normal size and signal. No cerebellar tonsillar herniation. Paraspinous Soft Tissues: No paravertebral masses. Prevertebral soft tissues are normal in thickness. C2-C3: The disc height and disk signal are well-preserved. A mild degree of generalized disc osteophyte complex is seen. There is moderate left-sided and minimal right-sided facet hypertrophy seen. There is moderate left-sided and no right-sided neural foraminal narrowing. The central canal is widely patent. C3-C4: The disc height is well-preserved. Loss of disc signal is seen at this level. Mild to moderate disc osteophyte complex is seen, which is eccentric to the right. There is moderate right-sided and minimal left-sided facet hypertrophy seen. There is moderate to severe right-sided moderate left-sided neural foraminal narrowing. Mild to moderate central canal narrowing is seen. C4-C5: The disc height is well-preserved. Loss of disc signal is seen at this level. A mild degree of generalized disc osteophyte complex is seen. There is moderate to prominent right-sided and moderate left-sided facet hypertrophy. There is moderate to severe right-sided and moderate left-sided neural foraminal narrowing. Mild to moderate central canal narrowing is seen. C5-C6: Mild loss of disc height is seen. Loss of disc signal is seen. Mild to moderate disc osteophyte complex is seen. Moderate facet joint hypertrophy is seen. There is moderate to severe left-sided and at least moderate right-sided neural foraminal narrowing. Mild central canal narrowing is seen. C6-C7: The disc height is well-preserved. Loss of disc signal is seen at this level. Mild to moderate disc osteophyte complex is seen. Moderate facet joint hypertrophy is seen. There is moderate to severe bilateral neural foraminal narrowing seen. Mild to moderate central canal narrowing is seen. C7-T1: Normal appearance. IMPRESSION: Multiple levels of cervical spine degenerative change are seen, which are overall worst inferiorly. Dictated by: Florentin Porras M.D. on 08/02/2021 at 16:22 Approved by: Florentin Porras M.D. on 08/02/2021 at 16:26
== END ==
PROVIDERS: Referring Provider Psychiatry & Neurology Neurology; Visit Provider Psychiatry & Neurology Neurology
DX: R51.9 Headache, unspecified (principal); M47.22 Other spondylosis with radiculopathy, cervical region; R43.0 Anosmia
CPT/HCPCS: 70544; 70553; 72141

== ENCOUNTER → 2022-04-10 18:31 | Outpatient (CLI) | payer OTHER, SELFPAY ==
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
== END ==
PROVIDERS: Referring Provider Chiropractor; Visit Provider Chiropractor
DX: S13.4XXA Sprain of ligaments of cervical spine, initial encounter (principal); S23.3XXA Sprain of ligaments of thoracic spine, initial encounter; S16.1XXA Strain of muscle, fascia and tendon at neck level, initial encounter; S29.012A Strain of muscle and tendon of back wall of thorax, initial encounter; M47.22 Other spondylosis with radiculopathy, cervical region; M48.02 Spinal stenosis, cervical region; M51.36 Other intervertebral disc degeneration, lumbar region; M51.37 Other intervertebral disc degeneration, lumbosacral region; M47.816 Spondylosis without myelopathy or radiculopathy, lumbar region; M47.817 Spondylosis without myelopathy or radiculopathy, lumbosacral region; M48.061 Spinal stenosis, lumbar region without neurogenic claudication; M48.07 Spinal stenosis, lumbosacral region; V89.2XXA Person injured in unspecified motor-vehicle accident, traffic, initial encounter
CPT/HCPCS: 70553; 72141; 72148

== ENCOUNTER → 2022-07-26 15:42 | Outpatient (CLI) | payer MEDICARE, SELFPAY ==
--- NOTE | 2022-07-26 15:43 | DI.MRI.S_ITS ---
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 After the administration of contrast, axial/sagittal/coronal T1 spin echo with fat saturation through the chest wall in the area mass of current clinical concern, described as below the right shoulder region.. COMPARISON: None. FINDINGS: Image quality: Excellent. Bones: The visualized bone marrow demonstrates normal signal on all sequences. The overlying cortex appears intact. No abnormal intraosseous enhancement. Soft tissues: No malignant-appearing soft tissue masses are visualized. There is a sharply demarcated ovoid mass in the area of current clinical concern containing only internal fat signal, measuring up to 11 cm craniocaudad, 4 cm transverse,o and up to 8.1 cm in maximal transverse AP dimension. It is well visualized on series 4, image 15 and series 10, image 22. The scanned muscles demonstrate normal overall bulk and internal signal. Subcutaneous tissues appear normal as well. No abnormal soft tissue enhancement is present within the fatty mass nor are there internal septations or marginal nodularity. This is located within the anterolateral lower right chest wall musculature. Its position in the craniocaudad dimension is approximately centered on the dome of the right hemidiaphragm laterally. IMPRESSION: Benign-appearing lipoma measuring up to 11 x 4 by 8.1 cm within the right chest anterolateral deep soft tissues centered approximately at the same axial level as the dome of the right hemidiaphragm during this imaging. No suspicion for this representing a liposarcoma. Dictated by: Martin Ruiz M.D. on 07/26/2022 at 16:52 Approved by: Martin Ruiz M.D. on 07/26/2022 at 16:59
== END ==
PROVIDERS: Referring Provider Family Medicine; Visit Provider Family Medicine
DX: D17.79 Benign lipomatous neoplasm of other sites (principal)
CPT/HCPCS: 71552; A9579